=== PATIENT | female | born 1990 | race Two or more races ===

== ENCOUNTER 2018-03-27 10:17 | Emergency (ER) | payer MEDICAID ==
[~2018-03-27] VITALS: Ht 152.4 cm; Wt 76.5 kg
[~2018-03-27 10:17] MED LIST: ALBU8HFA PO; ONDA4TAB59 PO; ONDA8TAB9 PO; PRED20TA PO
[2018-03-27 10:21] VITALS: BP 132/76
[2018-03-27] MEDS ORDERED: PRED10TA PO (11:13)
[2018-03-27] MEDS ORDERED: DOXY-200 PO (11:13)
== END 2018-03-27 11:32 | disposition home or self-care (01) ==
LOC: ER 10:18
DX: L03.315 Cellulitis of perineum (principal); J02.9 Acute pharyngitis, unspecified; N76.0 Acute vaginitis; Z90.49 Acquired absence of other specified parts of digestive tract; Z91.013 Allergy to seafood; Z88.8 Allergy status to other drugs, medicaments and biological substances; Z79.899 Other long term (current) drug therapy
CPT/HCPCS: 99284

== ENCOUNTER 2018-05-01 16:26 | Emergency (ER) | payer MEDICAID ==
[~2018-05-01] VITALS: Ht 165.1 cm; Wt 77.0 kg
[~2018-05-01 16:26] MED LIST changes: +PRED10TA PO
[2018-05-01] MEDS ORDERED: acetaminophen 325mg tablet PO STA (16:47)
[2018-05-01] MEDS ORDERED: normal saline 1000ML IV soln IV ONE (16:50)
[2018-05-01 17:14] LABS: BASOPHILS % (AUTO) 0.1 % (0-1); EOSINOPHILS % (AUTO) 0.2 % (0-6); HEMATOCRIT 36.5 % (35.0-45.0); HEMOGLOBIN 12.4 g/dl (12.0-16.0); MEAN CORPUSCULAR HGB CONC 33.9 % (33.0-36.5); MEAN CORPUSCULAR VOLUME 82.5 FL (78-98); MONOCYTES # (AUTO) 0.4 X10'3 (0-0.9); MONOCYTES % (AUTO) 3.7 % (2-12); NEUTROPHILS # (AUTO) 9.5 X10'3 (1.8-7.7); PLATELET COUNT 253 X10'3 (140-440); RED BLOOD COUNT 4.42 X10'6 (4.20-5.60); RED CELL DISTRIBUTION WIDTH 14.7 % (11.5-14.5); WHITE BLOOD COUNT 10.9 X10'3 (4.5-11.0)
[2018-05-01] MEDS ORDERED: ondansetron/PF 4mg/2ml inj IV ONE (17:35)
[2018-05-01] MEDS ORDERED: famotidine/PF 10 mg/ml inj IV ONE (17:35)
[2018-05-01 17:40] LABS: ALANINE AMINOTRANSFERASE 18 U/L (12-78); ALBUMIN 3.3 G/DL (3.4-5.0); ALBUMIN/GLOBULIN RATIO 0.6 (1.1-1.5); ALKALINE PHOSPHATASE 119 IU/L (46-116); ANION GAP 11 (8-16); ASPARTATE AMINO TRANSFERASE 17 U/L (10-37); BILIRUBIN,TOTAL 0.5 MG/DL (0.1-1.0); BLOOD UREA NITROGEN 9 MG/DL (7-18); CHLORIDE 96 MMOL/L (99-107); GLUCOSE 96 MG/DL (70-104); POTASSIUM 3.4 MMOL/L (3.5-5.1); SODIUM 131 MMOL/L (135-145); TOTAL CARBON DIOXIDE 24.1 MMOL/L (24-32); TOTAL PROTEIN 8.6 G/DL (6.4-8.2); eGFR 74 ML/MIN
[2018-05-01] MEDS ORDERED: proCHLORperazine 10 MG/2 ml inj IV ONE (18:00)
[2018-05-01 18:01] LABS: BANDS% (MANUAL) 2 % (0-10); LYMPHOCYTES % (MANUAL) 7 % (21-51); NEUTROPHILS % (MANUAL) 90 % (42-75); TOTAL CELLS COUNTED 100
[2018-05-01 18:02] LABS: LARGE PLATELETS FEW; MONOCYTES % (MANUAL) 1 % (2-12); PLATELET ESTIMATE NORMAL; TOXIC GRANULATION 1+
[2018-05-01 18:03] LABS: TOXIC VACUOLATION 2+
[2018-05-01 18:52] LABS: CLARITY,URINE CLEAR (Clear); COLOR,URINE YELLOW (Yellow); GLUCOSE, URINE NEGATIVE (Neg); KETONES,URINE TRACE mg/dl (Neg); LEUKOCYTE ESTERASE ,URINE SMALL (Neg); NITRITES, URINE NEGATIVE (Neg); OCCULT BLOOD,URINE LARGE (Neg); PROTEIN,URINE TRACE mg/dl (Neg)
[2018-05-01 18:54] LABS: URINE HCG NEGATIVE (NEG)
[2018-05-01 19:04] LABS: UA COLLECTION TYPE VOIDED
[2018-05-01 19:07] LABS: BACTERIA,URINE 1+ /HPF (Neg); SQUAMOUS EPITHELIAL CELL,UR FEW /LPF (FEW)
[2018-05-01] MEDS ORDERED: LEVO500T2 PO (19:44)
[2018-05-01] MEDS ORDERED: levoFLOXACIN 750MG TABLET PO ONE (19:45)
[2018-05-01 20:08] VITALS: BP 103/54
== END 2018-05-01 20:10 | disposition home or self-care (01) ==
LOC: ER 16:27
DX: N39.0 Urinary tract infection, site not specified (principal); J18.9 Pneumonia, unspecified organism; Z90.49 Acquired absence of other specified parts of digestive tract; Z88.8 Allergy status to other drugs, medicaments and biological substances; Z91.013 Allergy to seafood; Z79.899 Other long term (current) drug therapy
CPT/HCPCS: 36415; 71045; 74176; 80053; 81001; 81025; 83605; 84145; 85025; 87040; 87077; 87088; 87186; 93005; 96361; 96374; 96375; 99285; J0780; J2405; J3490; J7030

== ENCOUNTER 2018-06-12 20:01 | Emergency (ER) | payer MEDICAID ==
[~2018-06-12] VITALS: Ht 165.1 cm; Wt 74.5 kg
[~2018-06-12 20:01] MED LIST changes: -ALBU8HFA PO; +APIX5TAB3 PO; +HYDR-3972 PO; -ONDA4TAB59 PO; -ONDA8TAB9 PO; -PRED10TA PO; -PRED20TA PO
[2018-06-12] MEDS ORDERED: ondansetron/PF 4mg/2ml inj IV ONE (20:55)
[2018-06-12 21:02] LABS: CLARITY,URINE CLEAR (Clear); COLOR,URINE YELLOW (Yellow); GLUCOSE, URINE NEGATIVE (Neg); KETONES,URINE NEGATIVE (Neg); LEUKOCYTE ESTERASE ,URINE NEGATIVE (Neg); NITRITES, URINE NEGATIVE (Neg); OCCULT BLOOD,URINE NEGATIVE (Neg); PROTEIN,URINE NEGATIVE (Neg); URINE HCG POSITIVE (NEG); UROBILINOGEN,URINE 0.2 E.U/dL (0.2-1.0)
[2018-06-12 21:21] LABS: UA COLLECTION TYPE CLN CATCH MIDSTREAM
[2018-06-12 21:47] LABS: BASOPHILS % (AUTO) 0.4 % (0-1); EOSINOPHILS # (AUTO) 0.2 X10'3 (0-0.9); EOSINOPHILS % (AUTO) 1.7 % (0-6); HEMATOCRIT 27.4 % (35.0-45.0); HEMOGLOBIN 9.1 g/dl (12.0-16.0); LYMPHOCYTES % (AUTO) 41.5 % (21-51); MEAN CORPUSCULAR HEMOGLOBIN 27.6 PG (27.0-31.0); MEAN CORPUSCULAR HGB CONC 33.1 % (33.0-36.5); MEAN CORPUSCULAR VOLUME 83.5 FL (78-98); MEAN PLATELET VOLUME 6.4 FL (7.4-10.4); MONOCYTES # (AUTO) 0.6 X10'3 (0-0.9); MONOCYTES % (AUTO) 5.8 % (2-12); NEUTROPHILS # (AUTO) 4.8 X10'3 (1.8-7.7); NEUTROPHILS % (AUTO) 50.6 % (42-75); PLATELET COUNT 399 X10'3 (140-440); RED BLOOD COUNT 3.28 X10'6 (4.20-5.60); RED CELL DISTRIBUTION WIDTH 16.9 % (11.5-14.5); WHITE BLOOD COUNT 9.5 X10'3 (4.5-11.0)
[2018-06-12 21:57] LABS: INR 1.1 INR
[2018-06-12 22:02] LABS: ALANINE AMINOTRANSFERASE 13 U/L (12-78); ALBUMIN 2.9 G/DL (3.4-5.0); ALBUMIN/GLOBULIN RATIO 0.7 (1.1-1.5); ALKALINE PHOSPHATASE 96 IU/L (46-116); ANION GAP 6 (8-16); ASPARTATE AMINO TRANSFERASE 11 U/L (10-37); BILIRUBIN,TOTAL 0.2 MG/DL (0.1-1.0); BLOOD UREA NITROGEN 11 MG/DL (7-18); BUN/CREATININE RATIO 14.9 (6.6-38.0); CALCIUM 8.3 MG/DL (8.5-10.1); CHLORIDE 105 MMOL/L (99-107); CREATININE 0.74 MG/DL (0.40-0.90); GLUCOSE 101 MG/DL (70-104); POTASSIUM 3.6 MMOL/L (3.5-5.1); SODIUM 137 MMOL/L (135-145); TOTAL CARBON DIOXIDE 25.6 MMOL/L (24-32); TOTAL PROTEIN 7.2 G/DL (6.4-8.2); eGFR > 90 ML/MIN
[2018-06-12 22:16] LABS: URINE AMPHETAMINE SCREEN NEGATIVE (Neg); URINE BARBITUATE SCREEN NEGATIVE (Neg); URINE BENZODIAZEPINES SCREEN NEGATIVE (Neg); URINE CANNABINOID SCREEN POSITIVE (Neg); URINE COCAINE SCREEN NEGATIVE (Neg); URINE METHADONE SCREEN NEGATIVE (Neg); URINE OPIATE SCREEN NEGATIVE (Neg); URINE PHENCYCLIDINE SCREEN NEGATIVE (Neg)
[2018-06-12 22:20] LABS: BETA HCG,QUANTITATIVE 356 mIU/ml
[2018-06-12] MEDS ORDERED: ONDA4TAB9 SL (22:41)
[2018-06-12 22:50] VITALS: BP 114/64
[2018-06-15] MEDS ORDERED: ACET-812 PO (23:10)
== END 2018-06-12 22:52 | disposition home or self-care (01) ==
LOC: ER 20:02
DX: R07.9 Chest pain, unspecified (principal); R11.2 Nausea with vomiting, unspecified; R50.9 Fever, unspecified; R10.12 Left upper quadrant pain; R10.11 Right upper quadrant pain; F15.10 Other stimulant abuse, uncomplicated; Z33.1 Pregnant state, incidental; Z90.49 Acquired absence of other specified parts of digestive tract; Z88.8 Allergy status to other drugs, medicaments and biological substances; Z91.013 Allergy to seafood
CPT/HCPCS: 36415; 71045; 80053; 80305; 81003; 81025; 84702; 85025; 85610; 85651; 93005; 96374; 99285; J2405

== ENCOUNTER → 2018-07-14 | Emergency (ER) | payer MEDICAID ==
[~2018-07-14] VITALS: Ht 165.1 cm; Wt 90.0 kg
[~2018-07-14] MED LIST changes: +ACET-812 PO; +normal saline 1000ml 1,000 ML IVB ONE; +ondansetron 4mg rapidly disintigrating tab PO ONE
[2018-07-14 16:29] LABS: URINE HCG POSITIVE (NEG)
[2018-07-14 16:30] LABS: CLARITY,URINE SLIGHTLY CLOUDY (Clear); COLOR,URINE YELLOW (Yellow); GLUCOSE, URINE NEGATIVE (Neg); KETONES,URINE NEGATIVE (Neg); LEUKOCYTE ESTERASE ,URINE TRACE (Neg); NITRITES, URINE NEGATIVE (Neg); OCCULT BLOOD,URINE NEGATIVE (Neg); PROTEIN,URINE TRACE mg/dl (Neg); UROBILINOGEN,URINE 0.2 E.U/dL (0.2-1.0)
[2018-07-14 16:34] LABS: UA COLLECTION TYPE CLN CATCH MIDSTREAM
[2018-07-14 16:37] LABS: CAL OXALATE CRYSTALS 4+ /HPF (NEGATIVE)
[2018-07-14 16:38] LABS: MUCUS STRANDS MODERATE /LPF (Neg); SQUAMOUS EPITHELIAL CELL,UR MODERATE /LPF (FEW)
[2018-07-14 16:39] LABS: BACTERIA,URINE 2+ /HPF (Neg); RBC,URINE 0-2 /HPF (0-2)
[2018-07-14 17:04] VITALS: BP 112/59
== END | disposition home or self-care (01) ==
LOC: ER 15:20
DX: O26.891 Other specified pregnancy related conditions, first trimester (principal); R10.31 Right lower quadrant pain; R10.32 Left lower quadrant pain; F15.90 Other stimulant use, unspecified, uncomplicated; Z98.890 Other specified postprocedural states; Z91.013 Allergy to seafood; Z91.048 Other nonmedicinal substance allergy status; Z79.01 Long term (current) use of anticoagulants; Z79.899 Other long term (current) drug therapy; Z3A.10 10 weeks gestation of pregnancy
CPT/HCPCS: 76801; 81001; 81025; 87088; 99285; J7030

== ENCOUNTER 2018-08-31 19:27 | Emergency (ER) | payer MEDICAID ==
[~2018-08-31 19:27] MED LIST changes: -normal saline 1000ml 1,000 ML IVB ONE; -ondansetron 4mg rapidly disintigrating tab PO ONE
== END 2018-08-31 19:57 | disposition left against medical advice (07) ==
LOC: ER 19:28
DX: R11.10 Vomiting, unspecified (principal); R10.9 Unspecified abdominal pain; Z53.21 Procedure and treatment not carried out due to patient leaving prior to being seen by health care provider

== ENCOUNTER 2019-08-01 12:06 | Emergency (ER) | payer MEDICAID ==
[~2019-08-01] VITALS: Ht 165.1 cm; Wt 106.1 kg
[2019-08-01 12:10] VITALS: BP 121/81
--- NOTE | 2019-08-01 12:53 | NUR ---
Pt requests clearance to go to [facility] [place]. See evaluation by Provider.
== END 2019-08-01 13:12 | disposition home or self-care (01) ==
LOC: ER 12:06
DX: F15.90 Other stimulant use, unspecified, uncomplicated (principal); Z90.49 Acquired absence of other specified parts of digestive tract; Z88.8 Allergy status to other drugs, medicaments and biological substances; Z91.013 Allergy to seafood; Z79.899 Other long term (current) drug therapy
CPT/HCPCS: 99281